=== PATIENT | female | born 1965 | race Caucasian/White ===

== ENCOUNTER 2018-07-21 11:45 | Day surgery (SDC) | payer BC ==
--- NOTE | 2018-07-19 17:09 | HP ---
PREOPERATIVE HISTORY AND PHYSICAL: DATE OF ADMISSION: 07/21/18. ATTENDING PHYSICIAN: Dr. Rosie Olivia* (dictated by SVEN Prasad). CHIEF COMPLAINT: Left elbow pain. HISTORY OF PRESENT ILLNESS: The patient is a 53-year-old female who fell on 06/16 while in [place], [place], sustaining a left elbow dislocation. She was seen in the emergency department there and had elbow closed reduction and splinting. She presented on 07/10/[address] Olivia and felt the elbow was unstable with continued significant pain. She underwent an MRI of the elbow, which has revealed ulnar and radial collateral ligament tears with moderate effusion and subluxation of the elbow joint. It was recommended that she undergo surgical repair to help stabilize her elbow and she has elected to proceed. Her surgery is scheduled with Dr. Olivia, 07/21/18. PAST MEDICAL HISTORY: Significant for asthma, type 2 diabetes. PAST SURGICAL HISTORY: Hernia repair, ankle surgery on the right, vein surgery , left breast lumpectomy, scar tissue removal. CURRENT MEDICATIONS: 1. Albuterol. 2. Lipitor. 3. Advair Diskus. 4. Metformin. 5. Singulair. 6. Ventolin. ALLERGIES: No known drug allergies. FAMILY HISTORY: Significant for her dad having cancer, liposarcoma and a sister with history of ductal in situ breast cancer. SOCIAL HISTORY: She lives alone. She works as a banker as a corporate strategist. She quit smoking at age 32 and smoked for roughly 10 years. She drinks alcohol very rarely. She does not use illicit drugs. REVIEW OF SYSTEMS: The patient denies recent loss of consciousness, lightheadedness, dizziness, shortness of breath, chest pain, palpitation, gastrointestinal or genitourinary discomfort. PHYSICAL EXAMINATION GENERAL: She is alert and oriented x3, in no acute distress, pleasant and cooperative. VITAL SIGNS: Height 6 feet and 7 inches, weight 226, pulse 80, BP 140/92, respirations 16. HEENT: Reveals PERRLA. NECK: Supple. LUNGS: Positive wheeze in the left lung fan. Right is clear to auscultation. HEART: Regular rate and rhythm. No murmur auscultated. ABDOMEN: Obese, soft, nontender, and nondistended. Normoactive bowel sounds x4 quadrant. EXTREMITIES: Lower extremities within normal limits. Upper extremity shows moderate swelling of the left elbow and hand. She has no open lesions or excoriations. Her sensation and circulation are intact in the left upper extremity. ASSESSMENT: Left elbow instability with ulnar and radial collateral ligament tear secondary to recent trauma. PLAN: The patient placed into a new well-padded posterior elbow splint in the office today. Dr. Olivia discussed the risks and benefits of surgical repair of elbow. She has elected to proceed, scheduled for surgery on 07/21/18 at outpatient surgery center with Dr. Olivia. She is provided with a prescription of Percocet 5/325 mg 1 to 2 tablets q.4 to 6 hours p.r.n. pain to be used post surgically. She has enough Percocet from her prior prescription to get her through until surgery. All questions were answered today by Dr. Olivia with full discussion of risks and benefits of her procedure. SVEN PRASAD [id number]/[facility] #: [id number] [facility]PT[facility] HOSPITALWiliam
[~2018-07-21 11:45] MED LIST: Buffered Lidocaine 1% SYRIN* 1 ML/SYRINGE INTRADERM ONE; DiMENhydriNATE IV* 50 MG/ML VIAL IV PUSH ONE; Famotidine TAB* 20 MG ONE; Famotidine TAB* 20 MG PO ONE; HYDROcodone/ACETAMIN 5-325 MG* 1 TAB PO PRN; Ketorolac INJ* 30 MG/ML 1 ML VIAL IV PRN; Lactated Ringers 1000 ML Bag* 1,000 ML IV SCH; Naloxone* 0.4 MG/ML 1 ML VIAL IV PRN; PROCHLORPERAZINE INJ 5 MG/ML 2 ML VIAL IV PRN; diPHENhydraMINE IV* 50 MG/ML 1 ml VIAL (BENADRYL) ONE; fentaNYL* 50 MCG/ML 2 ML VIAL (100 MCG VIAL) IV PRN
[2018-07-21] MEDS ORDERED: ceFAZolin 2 GM PREMIX in ORs 2 GM/50 ML BAG IVPB ONE (11:55)
[2018-07-21] MEDS ORDERED: Propofol* 10 MG/ML 20 ML BTL ONE (12:14)
[2018-07-21] MEDS ORDERED: fentaNYL* 50 MCG/ML 2 ML VIAL (100 MCG VIAL) ONE ×3 (12:15→14:14)
[2018-07-21] MEDS ORDERED: Midazolam* 1 MG/ML 5 ML VIAL (5 MG) ONE (12:15)
[2018-07-21] MEDS ORDERED: Lidocaine 2% PF * 5 ML VIAL ONE (12:57)
[2018-07-21] MEDS ORDERED: Bupivacaine 0.5% SDV PF* 30ML VIAL ONE (13:06)
[2018-07-21] MEDS ORDERED: Ketorolac INJ* 30 MG/ML 1 ML VIAL ONE (13:15)
[2018-07-21] MEDS ORDERED: Ondansetron INJ* 2 MG/ML VIAL ONE (14:10)
[2018-07-21] MEDS ORDERED: oxyCODONE/Acetamin 5/325 MG* TAB ONE (15:28)
[2018-07-21] MEDS: oxyCODONE/Acetamin 5/325 MG* TAB PO PRN ×2 (15:30→15:32)
[2018-07-21 15:52] VITALS: BP 136/79
--- NOTE | 2018-07-21 22:15 | OP ---
CC: Rosie Olivia MD OPERATIVE NOTE: DATE OF OPERATION: 07/21/18 DATE OF : 69 SURGEON: Dr. Olivia. [employer] ARTISTIC DIRECTOR: SVEN Balderas ANESTHESIA: General. PRE-OP DIAGNOSIS: Left elbow instability with acute medial and lateral ligament tear. POST-OP DIAGNOSIS: Left elbow instability with acute medial and lateral ligament tear. PROCEDURE: Left elbow ligament repair, lateral and medial. ESTIMATED BLOOD LOSS: Zero. TOURNIQUET TIME: 1 hour and 30 minutes. INDICATIONS FOR PROCEDURE: Beth is a 53-year-old female who fell and injured her left elbow. She complained of instability and MRI showed complete tear of all the medial and lateral ligamentous and muscular structures. She presents for repair of possible external fixation. OPERATIVE PROCEDURE: The patient was brought to the operating room, was given a general anesthetic a nd placed in supine position on the operating table with a tourniquet around her left upper arm. Ski n of her left upper extremity is prepped and draped in usual sterile fashion. The upper extremity wa s exsanguinated and the tourniquet elevated to 250 mmHg. A lateral incision was made and we dissecte d through the subcutaneous tissue down to the extensors origin. There was complete rupture of the ex tensor origin from the lateral epicondyle and complete tear of the ligamentous structures. The joint looked very good, there was no cartilage damage to the radial head of capitellum. The hematoma was removed from the joint that was irrigated and then 2 G2 super anchors were placed in the lateral cond yle and the ligaments were repaired to the bone. This immediately stabilized the joint significantly . I had prior to the repair been able to sublux the joint very easily, now the joint is no longer hatch bluxing. Two additional G2 super anchors are placed in the lateral epicondyle and muscular structure s repaired, the bone was curetted prior to placement of the anchors. X-ray then was taken and we put the elbow through range of motion and there still appear to be some gapping on the medial aspect, th erefore, it was decided to repair the medial ligamentous structures as well. The lateral wound was i rrigated and then the subcutaneous tissue closed with 2-0 Polysorb and the skin with skin michelle. N ext, the medial longitudinal incision was made, the medial antebrachial cutaneous nerve was located a nd retracted by the sugar laboratory assistant, Anna Larry, whose assistance was essential for the safe c ompletion of the case. Next, the ulnar nerve was located, but was not transposed, it was just locate d to assured position and to protect it with retractors. Again, the flexor pronator origin was compl etely ruptured from the medial condyle elsewhere the ligamentous structures. Four holes for the G2 s uper anchors were drilled and 4 anchors were placed, 2 to repair the ligamentous structures and 2 to repair the muscle structures. The C-arm was used to evaluate the position of the anchors, which was good. Again, although it was stable with range of motion, it was not subluxable. The patient was hernandez ving some clicking in her wrist and her wrist was visualized on the C-arm and no fractures were found or ligament injuries. The medial wound was irrigated and the subcutaneous tissue closed with 2-0 Po lysorb and the skin with skin michelle. Both wounds were dressed with Xeroform, 4 x 4, Webril and a p osterior splint at 90 degrees of flexion. The patient tolerated the procedure well, was awakened fro m general anesthesia and brought to the recovery room in good condition. [id number]/[facility] #: [id number]
== END 2018-07-21 16:15 | disposition home or self-care (01) ==
LOC: OREAST 11:45
PROVIDERS: ATTEND Orthopaedic Surgery
DX: S53.22XA Traumatic rupture of left radial collateral ligament, initial encounter (principal); S53.32XA Traumatic rupture of left ulnar collateral ligament, initial encounter; W19.XXXA Unspecified fall, initial encounter; Y92.9 Unspecified place or not applicable; E11.9 Type 2 diabetes mellitus without complications; Z79.84 Long term (current) use of oral hypoglycemic drugs; J45.909 Unspecified asthma, uncomplicated; Z87.891 Personal history of nicotine dependence; E78.5 Hyperlipidemia, unspecified
CPT/HCPCS: 81025; A9270-GY; C1713; C1776; J0690; J1200; J1885; J2250; J2405; J2704; J3010; J3490